=== PATIENT | female | born 1995 | race Caucasian/White ===

== ENCOUNTER 2020-07-26 06:21 | Inpatient (IN) | payer OTHER ==
--- NOTE | 2020-07-25 11:11 | PREOPHP ---
Date of Admission: 07/26/2020 History Of Present Illness: Ms. Bautista is a 24-year-old female 3, para 2-0- 0-2, 40 and 2/7th weeks gestation. She has been followed by me during this without signifi cant complications. She is scheduled for induction of labor tomorrow because of postdate . has been active. She denies any particular problems. Past Medical History: Please see record. Family History: Please see record. Review of Systems: She reports no recent cough, cold, fever, or chills. No recent nausea or vomiting. No breast knots or lumps. No bowel or bladder issues. She denies any vaginal bleeding or spotting. Physical Examination: General: Young female, in no apparent distress. Neck: Supple without adenopathy or thyromegaly. Lungs: Clear. Cardiac: Regular rate and rhythm without murmurs. Breasts: Not examined. Abdomen: Estimated weight of approximately 7+ pounds. Pelvic: Cervix is 30% effaced, 2 cm, midline position, vertex -2 station. Extremities: No cyanosis, clubbing, or edema. Impression: A 40+ weeks . Plan: The patient will be admitted for induction secondary to postdate . JUSTO/FLYNN Voice ID: [id number]
--- OUTSIDE RECORDS SUMMARY | 2020-07-26 06:23 | XMS REPORT | Continuity of Care Document ---
:1995 Author Organization [facility] t Address [facility] [place] [address] [place] [id number] Care Team Providers Name Role Phone Unavailable Unavailable Unavailable Problems This patient has no known problems. Allergies, Adverse Reactions, Alerts This patient has no known allergies or adverse reactions. Medications This patient has no known medications. Procedures This patient has no known procedures. Results This patient has no known results.
[2020-07-26] MEDS ORDERED: PROMETHAZINE INJ 25 MG/ML AMP IV PRN (06:37)
[2020-07-26] MEDS ORDERED: METHYLERGONOVINE 0.2MG/ML AMP IM PRN ×2 (06:37→15:27)
[2020-07-26] MEDS ORDERED: BUTORPHANOL 1 MG/ML INJ IV PRN (06:37)
[2020-07-26] MEDS ORDERED: CARBOPROST TROME 250 MCG/ML IM PRN ×2 (06:37→15:27)
[2020-07-26] MEDS ORDERED: Ringers Lactate 1,000 ML IV PRN (06:37)
[2020-07-26] MEDS ORDERED: Ringers Lactate 1,000 ML IV SCH (07:00)
[2020-07-26] MEDS ORDERED: OXYTOCIN/LR 20 UNIT/1,000 ML BAG IV SCH ×3 (07:00→16:00)
[2020-07-26 07:31] VITALS: BMI 31.2
[2020-07-26 07:55] LABS: Absolute Lymphocytes (CBC) 1.9 K/uL (0.7-4.9); Basophils % 0.4 % (0-1.3); Hematocrit 37.1 % (36.0-45.0); MPV 9.1 fL (7.6-11.3); RBC Red Blood Cell Count 4.32 M/uL (3.86-4.86)
[2020-07-26 09:19] LABS: Urine Appearance CLOUDY; Urine Bilirubin NEGATIVE (NEG); Urine Blood 2+ (NEG); Urine Color YELLOW; Urine Glucose NEGATIVE (NEG); Urine Protein NEGATIVE (NEG); Urine Specific Gravity 1.015 (1.005-1.030)
[2020-07-26 09:27] LABS: Urine Microscopic Reflex ORDER UMIC
[2020-07-26 09:39] LABS: Urine Bacteria >50 /HPF (<20); Urine Mucus LIGHT /HPF (NONE SEEN); Urine RBC <5 /HPF (NONE SEEN)
[2020-07-26] MEDS ORDERED: FENTANYL CITR 100 MCG/2 ML IV ONE (12:28)
[2020-07-26] MEDS ORDERED: BUPIVACAINE 0.25% PF 30 ML VIAL IV ONE (12:29)
[2020-07-26] MEDS ORDERED: 0.2% ROPIVACAINE (200 MG/100 ML) BAG EP ONE (12:34)
[2020-07-26] MEDS ORDERED: ONDANSETRON 4 MG (ODT) TAB PO PRN (15:27)
[2020-07-26] MEDS ORDERED: METHYLERGONOVINE 0.2 MG TAB PO PRN (15:27)
[2020-07-26] MEDS ORDERED: ACETAMINOPHEN 500 MG TAB PO PRN (15:27)
--- NOTE | 2020-07-26 15:30 | P.BOP ---
Preoperative diagnosis: 40+ wk Postoperative diagnosis: same, viable female Primary procedure: SCVD viable female Secondary procedure: repain bilateral periurethral lacerations Estimated blood loss: 100ml Anesthesia: epidural Complications: None Transferred to: Other ([id number]) Condition: Good
[2020-07-26] MEDS ORDERED: Ringers Lactate 4,000 ML IV ONE (17:37)
[2020-07-26] MEDS: IBUPROFEN 600 MG TAB PO PRN (22:32)
[2020-07-27] MEDS: IBUPROFEN 600 MG TAB PO PRN ×2 (06:05→12:25)
--- NOTE | 2020-07-27 07:25 | DN ---
Surgeon: Jass Antoine MD Patient was admitted at 40+ weeks gestation for induction of labor secondary to postdate . After Pitocin induction was begun approximately 2 hours later, artificial rupture of membranes was pe rformed by placement of scalp electrode. She had a first stage of labor of 4 hours and 8 minut es, second stage of labor, 7 minutes. She delivered a 7 pounds 15 ounce female infant, 9 and 9 with epidural anesthesia. delivered vertex OA. Cord around the neck x1 was noted. Cord blo od was obtained. After delayed cord clamping of approximately 90 seconds, placed on mother's upper abdomen. Placenta was spontaneously expelled and appeared to be intact. Patient suffered bila teral periurethral lacerations, which were repaired with simple sutures of 3-0 Vicryl. Quantitative blood loss was 264 mL. Patient tolerated all procedures well. JUSTO/FLYNN Voice ID: [id number] Report ID: [id number]
--- NOTE | 2020-07-27 09:49 | DS ---
Final Hospital Discharge Diagnosis: 40+ week , delivered. Complications: None. Procedures: Artificial rupture of membranes, Pitocin induction of labor, placement of epidural facundo ter, spontaneous controlled vaginal delivery of viable female infant, repair of bilateral periurethra l lacerations. Hospital Course: The patient is a 24-year-old female, 3, para 2-0-0-2 at 4 0+ weeks gestation, admitted for induction of labor secondary to post-date . She delivered a 7 pounds 15-ounce female , 9 and 9 with epidural anesthesia. She was dismissed on the first day, ambulatory, on a select diet with routine post vaginal delivery, activity restr ictions, to be seen back in my office in approximately 6 weeks. She was dismissed with to continue t aking her iron and vitamins. Lab work included during admission hemoglobin and hematocrit o f 12.3 and 37.1, dismissal of 33.2. She is Rh positive blood type. JUSTO/FLYNN Voice ID: [id number] Report ID: [id number]
[2020-07-27 11:51] VITALS: BP 116/61; TEMP 97.9
[2020-07-27 21:18] LABS: RPR (Rapid Plasma Reagin) NON-REACT (NON-REACT)
[2020-07-31 11:43] LABS: HBsAG Nonreactive (Nonreactive)
== END 2020-07-27 18:15 | disposition home or self-care (01) | DRG 807 ==
LOC: 2ND-WC 06:21
PROVIDERS: ADMIT Specialist; ATTEND Specialist
PROC: 10907ZC Drainage of Amniotic Fluid, Therapeutic from Products of Conception, Via Natural or Artificial Opening (ICD-10-PCS; principal; 2020-07-26)
PROC: 10E0XZZ Delivery of Products of Conception, External Approach (ICD-10-PCS; 2020-07-26)
PROC: 3E033VJ Introduction of Other Hormone into Peripheral Vein, Percutaneous Approach (ICD-10-PCS; 2020-07-26)
PROC: 4A1H7CZ Monitoring of Products of Conception, Cardiac Rate, Via Natural or Artificial Opening (ICD-10-PCS; 2020-07-26)
PROC: 10H073Z Insertion of Monitoring Electrode into Products of Conception, Via Natural or Artificial Opening (ICD-10-PCS; 2020-07-26)
PROC: 0UQMXZZ Repair Vulva, External Approach (ICD-10-PCS; 2020-07-26)
DX: O71.82 Other specified trauma to perineum and vulva (principal); Z37.0 Single live birth; O48.0 Post-term pregnancy; Z3A.40 40 weeks gestation of pregnancy; Z20.828 Contact with and (suspected) exposure to other viral communicable diseases
CPT/HCPCS: 36415; 81003; 81015; 85014; 85025; 86592; 86901; 87086; 87088; 87340; J2590; J7120; U0003